=== PATIENT | female | born 1995 | race Caucasian/White ===

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

== ENCOUNTER 2017-06-03 21:55 | Emergency (ER) | payer MEDICAID, OTHER ==
[~2017-06-03] VITALS: Ht 160 cm; Wt 75.0 kg
[2017-06-03 21:58] VITALS: BP 133/75; PULSE 78; RESP 16; TEMP 98.5; O2SAT 99
--- NOTE | 2017-06-03 22:38 | PD ---
HPI Chief Complaint: Headache Time Seen by Provider: 22:35 Travel History International Travel<30 days: No Contact w/Intl Traveler<30days: No Traveled to known affect area: No History of Present Illness HPI h/o migraine per patient "all her life"....patient is here for generalized zepeda, nausea, but no v/d....12/21, however per patient she has not had a ct head as part of her evaluation....denies alleviating/aggravating factors....no associated factors such as fever/n/v/d/cp/back pain/abd pain PFSH Past Medical History Asthma: Yes Cancer: No Cardiovascular Problems: Yes (HX OF IRREGULAR HEARTBEAT (PAUSE)) Developmental Delay: No Diabetes: No Diminished Hearing: No Endocrine: No Gastrointestinal Disorders: Yes (HX OF REFLUX) Genitourinary: No Hepatitis: No Hiatal Hernia: No Hypertension: No Immune Disorder: No Musculoskeletal: Yes Neurologic: No Psychiatric: No Reproductive: No Respiratory: Yes (HX OF MILD ASTHMA) Immunizations Current: Yes Migraines: Yes Thyroid Disease: No Tetanus Vaccination: Unknown Influenza Vaccination: No ?: Not Past Surgical History AICD: No Body Medical Devices: SCREW IN L HAND Section: Yes Joint Replacement: No Pacemaker: No Other Surgery: Yes Social History Alcohol Use: No Tobacco Use: No Substance Use: No Allergies-Medications (Allergen,Severity, Reaction): Coded Allergies: penicillin G (Unverified Allergy, Mild, MOMS ALLERGIC, 02/25/17) MOTHER STATES THAT EVERYONE IN HER FAMILY IS ALLERGIC SO SHE DOESN'T WANT HER DAUGHTER TO BE EXPOSED. Reported Meds & Prescriptions Reported Meds & Active Scripts Active Zofran Odt (Ondansetron Odt) 4 Mg Tab 4 Mg SL Q6HR PRN Fioricet (Rthexgqmeo-Pklpipstmrgoz-Bannushy) 50-300-40 Mg Cap 1 Cap PO Q4H PRN Review of Systems Except as stated in HPI: all other systems reviewed are Neg General / Constitutional: No: Fever Eyes: No: Visual changes HENT: Positive: Headaches Cardiovascular: No: Chest Pain or Discomfort Respiratory: No: Shortness of Breath Gastrointestinal: No: Abdominal Pain Genitourinary: No: Dysuria Musculoskeletal: No: Pain Skin: No Rash Neurologic: No: Weakness Psychiatric: No: Depression Endocrine: No: Polydipsia Hematologic/Lymphatic: No: Easy Bruising Physical Exam Narrative GENERAL: SKIN: Warm and dry. HEAD: Atraumatic. Normocephalic. EYES: Pupils equal and round. No scleral icterus. No injection or drainage. ENT: No nasal bleeding or discharge. Mucous membranes pink and moist. NECK: Trachea midline. No JVD. CARDIOVASCULAR: Regular rate and rhythm. RESPIRATORY: No accessory muscle use. Clear to auscultation. Breath sounds equal bilaterally. GASTROINTESTINAL: Abdomen soft, non-tender, nondistended. MUSCULOSKELETAL: Extremities without clubbing, cyanosis, or edema. No obvious deformities. NEUROLOGICAL: Awake and alert. No obvious cranial nerve deficits. Motor grossly within normal limits. Five out of 5 muscle strength in the arms and legs. Normal speech. PSYCHIATRIC: Appropriate mood and affect; insight and judgment normal. Data Data Last Documented VS Vital Signs Date Time Temp Pulse Resp B/P (MAP) Pulse Ox O2 Delivery O2 Flow Rate FiO2 06/03/17 21:58 98.5 78 16 133/75 (94) 99 Orders Orders Urinalysis - C+S If Indicated (06/03/17 22:38) Ct Brain W/O Iv Contrast(Rout) (06/03/17 22:38) Iv Access Insert/Monitor (06/03/17 22:38) Ed Urine Pregnancytest Poc (06/03/17 22:38) Diphenhydramine Inj (Benadryl Inj) (06/03/17 22:45) Metoclopramide Inj (Reglan Inj) (06/03/17 22:45) Ed Discharge Order (06/04/17 00:21) Labs Laboratory Tests Test 06/03/17 23:13 Urine Color LIGHT-YELLOW Urine Turbidity CLEAR Urine pH 6.0 Urine Specific [place] 1.013 Urine Protein NEG mg/dL Urine Glucose (UA) NEG mg/dL Urine Ketones NEG mg/dL Urine Occult Blood NEG Urine Nitrite NEG Urine Bilirubin NEG Urine Urobilinogen LESS THAN 2.0 MG/DL Urine Leukocyte Esterase TRACE Urine RBC 1 /hpf Urine WBC 1 /hpf Urine Squamous Epithelial Cells 1 /hpf Urine Amorphous Sediment RARE Urine Bacteria RARE /hpf Microscopic Urinalysis Comment CULT NOT INDICATED MDM Medical Decision Making Medical Screen Exam Complete: Yes Emergency Medical Condition: Yes Medical Record Reviewed: Yes Differential Diagnosis ich v siunusitis v tension v migraine Narrative Course neg preg, ua neg for uti...ct neg for ich or sinusitis....patient will be d/c home Diagnosis Primary Impression: headache Patient Instructions: Acute Headache (ED), General Instructions Scripts Ondansetron Odt (Zofran Odt) 4 Mg Tab 4 MG SL Q6HR Y for Nausea/Vomiting, #10 TAB 0 Refills Prov: Yazan Braswell MD 06/04/17 Yjjwjqoahe-Chchgooxgaldb-Plphkzot (Fioricet) 50-300-40 Mg Cap 1 CAP PO Q4H Y for HEADACHE, #10 CAP 0 Refills Prov: Yazan Braswell MD 06/04/17 Disposition: 01 DISCHARGE HOME Condition: Stable Yazan Braswell MD Jun 03, 2017 22:38
[2017-06-03] MEDS ORDERED: diphenhydrAMINE HCL 50 MG/ML VIAL IVP ONE (22:45)
[2017-06-03] MEDS ORDERED: METOCLOPRAMIDE HCL 10 MG/2 ML VIAL IVP ONE (22:45)
[2017-06-03 23:33] LABS: BACTERIA, URINE RARE /hpf; BLOOD, URINE NEG (NEG); COMMENT (UR) CULT NOT INDICATED; CULTURE IF INDICATED CULT NOT INDICATED; GLUCOSE,URINE NEG (NEG); KETONE, URINE NEG (NEG); NITRITE,URINE NEG (NEG); SQUAMOUS EPITHELIAL CELL URINE 1 /hpf (0-5); URINE COLOR LIGHT-YELLOW (YELLW/STRAW)
--- NOTE | 2017-06-04 00:13 | RADRPT ---
EXAM DATE/TIME: 06/04/2017 00:04 [facility] COMPARISON: No previous studies available for comparison. INDICATIONS : Headaches. RADIATION DOSE: 37.96 CTDIvol (mGy) MEDICAL HISTORY : None SURGICAL HISTORY : None. ENCOUNTER: Initial ACUITY: 1 day PAIN SCALE: 8/10 LOCATION: Bilateral cranial TECHNIQUE: Multiple contiguous axial images were obtained of the head. Using automated exposure control and adj ustment of the mA and/or kV according to patient size, radiation dose was kept as low as reasonably a chievable to obtain optimal diagnostic quality images. DICOM format image data is available electro nically for review and comparison. FINDINGS: CEREBRUM: The ventricles are normal for age. No evidence of midline shift, mass lesion, hemorrhage or acute in farction. No extra-axial fluid collections are seen. POSTERIOR FOSSA: The cerebellum and brainstem are intact. The 4th ventricle is midline. The cerebellopontine angle i s unremarkable. EXTRACRANIAL: The visualized portion of the orbits is intact. SKULL: The calvaria is intact. No evidence of skull fracture. CONCLUSION: Negative noncontrast head CT. Arnel Bond MD on June 04, 2017 at 0:11 Board Certified Radiologist. This report was verified electronically.
[2017-06-04] MEDS ORDERED: BUTA1CAP PO (00:19)
[2017-06-04] MEDS ORDERED: ZOFR4TAB3 SL (00:20)
== END 2017-06-04 00:40 | disposition home or self-care (01) ==
LOC: NEPD 21:55
DX: R51 Headache (principal); R11.0 Nausea; J45.909 Unspecified asthma, uncomplicated; K21.9 Gastro-esophageal reflux disease without esophagitis; Z79.899 Other long term (current) drug therapy; Z88.0 Allergy status to penicillin
CPT/HCPCS: 70450; 81001; 84703; 96374; 96375; 99285; J1200; J2765